=== PATIENT | female | born 1990 | race Caucasian/White ===

== ENCOUNTER 2022-06-01 19:11 | Inpatient (IN) | payer OTHER, SELFPAY ==
[2022-06-01] VITALS (10 sets, daily range): BP systolic 88–126; BP diastolic 55–84; PULSE 65–88; RESP 18; TEMP 36.3; O2SAT 100
[2022-06-01] MEDS: OXYTOCIN 30 UNITS/NS 500 ML 30 UNITS/500 ML BAG 999 UNITS IV CONT (19:36)
[2022-06-01] MEDS: METHYLERGONOVINE MALEATE 0.2 MG/ML VIAL IM (19:44)
--- NOTE | 2022-06-01 19:58 | PM.IMHP ---
H&P: HPI History of Present Illness Date/Time: 06/01/22 19:58 Chief Complaint: Labor Narrative: 32-year-old 3 para 1 whose last menstrual previous 09/02/2021, EDC is 06/09/2022, confirmed by 7 week ultrasound presents at term in active labor she has mullerian anomaly with septate levators uterus. She is admitted with this completely dilated and ruptured. She is negative for group B strep PMFSH Family History Family History Mother Breast cancer Endometriosis Social History Social History Substance use: never Spiritual care concerns: No Meds Home Medications and Allergies Home Medications Medication Instructions Recorded Confirmed Type B.coagulan,subtilis 1 bill. 2 tablet PO 05/02/22 History cell-inulin 1 gram-vit C 15 mg chew tablet (up4 Probiotics-Prebiotic Kids) magnesium 250 mg tablet 250 mg PO DAILY 05/02/22 05/02/22 History polyethylene glycol 3350 17 17 g PO DAILY 05/02/22 05/02/22 History gram/dose oral powder (Miralax) prenat.vits,lee,bbs-blyx-grquw 1 tablet PO DAILY 05/02/22 05/02/22 History simethicone 125 mg capsule (Gas 125 mg PO DAILY 05/02/22 05/02/22 History Relief (simethicone)) Allergies Allergy/AdvReac Type Severity Reaction Status Date / Time No Known Allergies Allergy Verified 05/02/22 15:40 Assessment and Plan Assessment and plan (1) Term : Code(s): Z34.90 - Encounter for supervision of normal , unspecified, unspecified trimester Status: Acute (2) Active labor: Status: Acute (3) Septate uterus: Code(s): Q51.28 - Other and unspecified doubling of uterus Status: Acute Plan spontaneous vaginal delivery is eminent.
--- NOTE | 2022-06-01 20:01 | P.PCNOB_ITS ---
OB - Delivery Note Procedure Delivery date: 06/01/22 Induction method: None Delivery monitor: External FHT Route of delivery: Episiotomy description: None Laceration Description: Perineal - 1st Degree Delivery repair: vicryl Quantitative Blood Loss (ml): 300 Anesthesia type: Local Disposition: Floor Complications: Perception as nurse delayed I arrived after deliver of the placenta [place] Baby Date of : 06/01/22 Time of : 19:21 Weeks of gestation at delivery: 38 Infant gender: Male Weight (pounds): 7 Weight (ounces): 11 presentation: vertex position: Left Occiput Anterior Placenta delivery description: Spontaneous Cord Vessel Description: 3 Vessels score one minute: 9 score five minutes: 9
[2022-06-01] MEDS: OXYTOCIN 30 UNITS/NS 500 ML 30 UNITS/500 ML BAG 125 UNITS IV CONT (20:09)
[2022-06-01 20:24] LABS: Basophils Percent Auto 0.4 % (0.2-1.2); Eosinophils Percent Auto 0.1 % (0-4.4); Hematocrit 32.4 % (37.0-47.0); Immature Granulocyte Absolute 0.05 K/mm3 (0.00-0.031); Immature Granulocyte Percent A 0.4 % (0-0.5); Immature Platelet Fraction Pct 16.3 % (0.9-11.2); Lymphocytes Absolute Auto 2.94 K/mm3 (0.9-3.2); Lymphocytes Percent Auto 26.4 % (18.3-44.2); Mean Corpuscular HGB Conc 30.9 g/dl (32-36); Mean Corpuscular Hemoglobin 25.6 pg (26-34); Mean Corpuscular Volume 82.9 fl (80-100); Mean Platelet Volume 13.9 fl (7.4-10.4); Monocytes Absolute Auto 0.8 K/mm3 (0.1-0.6); Monocytes Percent Auto 7.6 % (2.6-8.5); Neutrophils Absolute Auto 7.2 K/mm3 (1.3-6.7); Neutrophils Percent Auto 65.1 % (45.5-73.1); Platelet Count Result 175 k/mm3 (150-375); Red Blood Count 3.91 M/mm3 (4.2-5.4); Red Cell Distribution Width 14.6 % (11.5-14.5); White Blood Count 11.1 K/mm3 (4.5-10.0)
--- NOTE | 2022-06-01 21:55 | LDADM ---
This patient, Cristina Frankel, was admitted to Labor/Delivery/Recovery 104 on 06/01/22 at 19:11. Plans for labor, pain management and were discussed with patient. Patient/family oriented to hospital policies and general routines including ID bracelet, bed and alarms, visiting hours, pain management, procedures, bathroom and other care routines, personal items, smoking policy, room service/diet and guest tray routines, security routines, and visiting hours. Patient/Family are encouraged to report perceived risks to care and to ask questions if they do not understand what they are told or what they should do. See OBIX for further documentation.
[2022-06-02 04:25] VITALS: BP 126/87; PULSE 102; RESP 18; TEMP 36.3; O2SAT 100
[2022-06-02 05:23] LABS: Hematocrit 25.4 % (37.0-47.0)
[2022-06-02] MEDS: POLYSACCHARIDE IRON COMPLEX 150 MG CAPSULE PO ×2 (07:52→16:30)
[2022-06-02] MEDS: DOCUSATE SODIUM 100 MG CAPSULE PO ×2 (07:53→16:29)
[2022-06-02] MEDS: MULTIVIT/MIN/PREN/FOL AC/IRON TABLET 1 TAB PO (07:53)
[2022-06-02 08:00] VITALS: BP 110/71; PULSE 111; RESP 16; TEMP 36.9; O2SAT 100
--- NOTE | 2022-06-02 08:52 | PC.NURSE ---
Received in report from primary RN that mother stated she does not want assistance.
[2022-06-02 10:19] LABS: Rapid Plasma Reagin Non-Reactive (NonReactive)
[2022-06-02 12:04] VITALS: BP 116/72; PULSE 89; RESP 18; TEMP 36.9; O2SAT 99
[2022-06-02 16:30] VITALS: PULSE 80; RESP 16; O2SAT 100
[2022-06-02 16:34] VITALS: BP 112/73; PULSE 80; RESP 16; TEMP 36.9; O2SAT 100
--- NOTE | 2022-06-02 17:16 | PM.OBPNVD ---
OB - PN: Subj Subjective Date/time seen: 06/02/22 17:16 Narrative: Pain OK. Would like to go home. Would like circumcision for son. OB - PN: Obj Data Labs CBC & Chem 7: 06/02/22 04:19 Labs: Laboratory Results - last 24 hr 06/01/22 06/01/22 06/01/22 20:17 20:17 20:17 WBC 11.1 H RBC 3.91 L Hgb 10.0 L Hct 32.4 L MCV 82.9 MCH 25.6 L MCHC 30.9 L RDW 14.6 H Plt Count 175 MPV 13.9 H Immature Gran % (Auto) 0.4 Neut % (Auto) 65.1 Lymph % (Auto) 26.4 Bradford % (Auto) 7.6 Eos % (Auto) 0.1 Baso % (Auto) 0.4 Lymph # (Auto) 2.94 Bradford # (Auto) 0.8 H Eos # (Auto) 0.0 Baso # (Auto) 0.0 Abs Immat Gran (auto) 0.05 H Absolute Neuts (auto) 7.2 H Absolute Nucleated RBC 0.0 Nucleated RBC % 0.0 % Immature Plt Fraction 16.3 H RPR Non-reactive Blood Type A Positive Antibody Screen Negative 06/02/22 04:19 WBC RBC Hgb 8.0 L Hct 25.4 L MCV MCH MCHC RDW Plt Count MPV Immature Gran % (Auto) Neut % (Auto) Lymph % (Auto) Bradford % (Auto) Eos % (Auto) Baso % (Auto) Lymph # (Auto) Bradford # (Auto) Eos # (Auto) Baso # (Auto) Abs Immat Gran (auto) Absolute Neuts (auto) Absolute Nucleated RBC Nucleated RBC % % Immature Plt Fraction RPR Blood Type Antibody Screen OB - PN A/P Plan Comments: A: PPD#1, doing well. P: Reviewed circ. Home to f/u 6 weeks. Exam Psych: Other: AVSS ABD soft, nontender, fundus firm EXT nontender
--- NOTE | 2022-06-02 17:17 | P.DS_ITS ---
DS: Admitting Diagnosis Discharge Date 06/02/22 Admitting Diagnosis IUP at term Labor DS: Discharge Diagnosis Discharge Diagnosis (1) (normal spontaneous vaginal delivery): Code(s): O80 - Encounter for full-term uncomplicated delivery Status: Acute OB - DS: Summary OB Procedures : None OB Procedures Intrapartum: Spontaneous Vag Delivery OB Procedures: : None Time Spent with Patient Time attestation: Total time spent providing and/or coordinating discharge services: DS: Data Data Completed and Pending Labs on day of discharge: Labs from last 24 hours 06/02/22 06/01/22 06/01/22 04:19 20:17 20:17 WBC RBC Hgb 8.0 L Hct 25.4 L MCV MCH MCHC RDW Plt Count MPV Immature Gran % (Auto) Neut % (Auto) Lymph % (Auto) Stephenson % (Auto) Eos % (Auto) Baso % (Auto) Lymph # (Auto) Stephenson # (Auto) Eos # (Auto) Baso # (Auto) Abs Immat Gran (auto) Absolute Neuts (auto) Absolute Nucleated RBC Nucleated RBC % % Immature Plt Fraction RPR Non-reactive Blood Type A Positive Antibody Screen Negative 06/01/22 20:17 WBC 11.1 H RBC 3.91 L Hgb 10.0 L Hct 32.4 L MCV 82.9 MCH 25.6 L MCHC 30.9 L RDW 14.6 H Plt Count 175 MPV 13.9 H Immature Gran % (Auto) 0.4 Neut % (Auto) 65.1 Lymph % (Auto) 26.4 Stephenson % (Auto) 7.6 Eos % (Auto) 0.1 Baso % (Auto) 0.4 Lymph # (Auto) 2.94 Stephenson # (Auto) 0.8 H Eos # (Auto) 0.0 Baso # (Auto) 0.0 Abs Immat Gran (auto) 0.05 H Absolute Neuts (auto) 7.2 H Absolute Nucleated RBC 0.0 Nucleated RBC % 0.0 % Immature Plt Fraction 16.3 H RPR Blood Type Antibody Screen Discharge Plan Discharge Attending physician on discharge: Ej Givens Discharging Clinician: Ej Givens Patient Disposition: Home, Self-Care Activity: pelvic rest Diet: regular Discharge Instructions: Call or return if temperature above 100.4? F, increased abdominal pain, increased vaginal bleeding or any new problems. Stand Alone Forms: General Discharge Information Follow-up/Referrals: Ej Givens MD [Physician] - 6 Weeks Discharge Medications: New ibuprofen 600 mg tablet 600 mg PO Q6H PRN (Reason: cramps) Qty: 30 0RF ferrous sulfate 325 mg (65 mg iron) tablet 325 mg PO DAILY Qty: 30 0RF Continued magnesium 250 mg Tablet 250 mg PO DAILY #2 Tablet 1 tablet PO DAILY up4 Probiotics-Prebiotics Kids 1 billion cell- 1 gram-15 mg Tablet,Chewable 2 tablet PO simethicone [Gas Relief (simethicone)] 125 mg Capsule 125 mg PO DAILY polyethylene glycol 3350 [Miralax] 17 gram/dose Powder 17 g PO DAILY Date of admission: 06/01/22 19:11 Primary Care Provider: PHYSICIAN,GLOST TILE SORTER Admitting Provider: Ej Givens Attending physician on admission: Ej Givens Condition: Stable
[2022-06-04 11:52] VITALS: BP 111/76; PULSE 85; RESP 20; TEMP 36.9; O2SAT 99
== END 2022-06-02 20:08 | disposition home or self-care (01) | DRG 807 ==
LOC: ANHLDR 19:20 → ANHOB2 22:56
PROVIDERS: Admitting Provider Obstetrics & Gynecology; Visit Provider Obstetrics & Gynecology
DX: O62.3 Precipitate labor (principal); Z37.0 Single live birth; Z3A.38 38 weeks gestation of pregnancy; O70.0 First degree perineal laceration during delivery; Q51.818 Other congenital malformations of uterus; Q51.28 Other and unspecified doubling of uterus
CPT/HCPCS: 36415; 85014; 85018; 85025; 85055; 86592; 86850; 86900; 86901; A9270; J2210; J2590

== ENCOUNTER 2025-03-19 01:11 | Day surgery (SDC) | payer BC, SELFPAY ==
[2025-03-05 12:38] VITALS: BMI 22.8
--- NOTE | 2025-03-05 12:46 | PC.NURSE ---
Report to the Outpatient Waiting Room, entrance under the green pavilion located off [facility], at time ____1000___ on date ___03/19/25____. Planned Procedure Time: ____1200____.? Time changes happen often and if your time is changed the preop area will call you the afternoon before. - You and your visitor will be asked to self-screen and do not enter if you have any COVID symptoms. Please call surgeon if you need to reschedule. - A mask is optional within the hospital at this time. Patients may have clear liquids (water, carbonated beverages, clear teas, apple juice) until 3 hours prior to surgery with a maximum of 20 ounces. - No food from midnight until time of surgery and no smoking, or chewing tobacco (or any form of nicotine). No chewing gum, candy or mints. Take only the following medications with a SIP of water on the morning of surgery: NONE DO NOT STOP ANY OF YOUR OTHER PRESCRIPTION MEDICATIONS PRIOR TO SURGERY EXCEPT THE FOLLOWING Hold all vitamins and supplements for 3 days per anesthesiologist. Please no make-up, nail amharic, hairspray, perfume, deodorant, or body powder the day of surgery.? No jewelry (including any body piercings) or valuables the day of surgery, leave them at home.? Please take a shower or bath the night before, or the morning of, surgery with an antibacterial soap.? Wear comfortable, loose fitting clothing.? Children are encouraged to wear pajamas. - Jewelry must be removed prior to entering the operating room.? Rings and piercings that are not removed may be cut off. - The hospital will not accept responsibility for valuables.? - Please leave all valuables, including medications, at home the day of surgery. If you are going home after surgery, a licensed fire truck driver must drive you home.? - NO public transportation without another adult if you receive anesthesia. - We recommend that an adult stay with you for 24 hours following discharge. - We also recommend that you do not drive, make important decision, drink alcoholic beverages, or take any drugs that were not prescribed by your health care provider for at least 24 hours after your discharge time. Follow any additional instructions given to you from your surgeon. Telephone instructions given to Courtney and asked if any additional questions and then verbalized understanding. Patient advised to call surgeon office or pre surgery nurse liaison [phone] if any additional questions.
--- OUTSIDE RECORDS SUMMARY | 2025-03-19 01:19 | XMS_ITS | Encounter Summary ---
Author Organization [facility] Address [address] [place] [address] Care Team Providers Care Hand Edge Bander Name Role Phone Unavailable Primary Care Provider Unavailabl e Encounter Details Date Type Department Care Team (Late st Contact Info) Description 06/29/2023 Lab Requisition [facility] - DermPath Lab 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 Not on file Not on file documented as of this encounter Plan of Treatment Not on file documented as of this encounter Procedures Procedure Name Priority Date/Time Associated Diagnosis Comments DERMATOPATHOLOGY Routine 06/29/2023 3:33 AM CDT documented in this encounter Results * DERMATOPATHOLOGY (06/29/2023 3:33 AM CDT) Case Report Dermatopathology Report Case: [id number] Authorizing Provider: Lei Hernandez MD Collected: 06/29/2023 03:33 AM Ordering Location: [facility] Lab Received: 06/30/2023 07:38 AM Pathologist: Page Moreira MD Specimen: Skin, left post auricular 3 4:26 PM CDT DERMATOPATHOLOGY LABORATORY Final Diagnosis Specimen A. 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 The specimen consists of a shave biopsy measuring 10x8x3 mm. Jar 0. 3 4:26 PM CDT DERMATOPATHOLOGY LABORATORY Microscopic Description Specimen A. SKIN, left post auricular: There are nests of cytologically bland melanocytes within the dermis that mature with depth. 3 4:26 PM CDT DERMATOPATHOLOGY LABORATORY Disclaimer An external and internal positive and negative controls are appropriate for the histochemical, immunohistochemical and immunofluorescence stain(s) in this case (if any), except where stated explicitly. The performance characteristics of the stain(s) cited in this report were developed and its performance characteristic determined by the Dermatopathology Laboratory at [facility], directed by Dr. Doug Coles. These tests need not be, and therefore are not, approved by the [place] Food and Drug Administration. The tests are used for clinical purposes. Billing Codes Specimen Charges Stain Charges 86167 1 3 4:26 PM CDT DERMATOPATHOLOGY LABORATORY Embedded Images 3 4:26 PM CDT DERMATOPATHOLOGY LABORATORY Pathology/Cytolo gy TISSUE SPECIMEN FROM SKIN / Unknown 06/29/2023 3:33 AM CDT 06/30/2023 7:38 AM CDT us Lei Hernandez MD LAB - PATHOLOGY/CYTOLOGY ORDER NAYELI Final Result DERMATOPATHOLOGY LABORATORY [facility] - Department of Dermatology [address], [address] [phone] documented in this encounter Visit Diagnoses Not on filedocumented in this encounter
--- OUTSIDE RECORDS SUMMARY | 2025-03-19 01:19 | XMS_ITS | Clinical Summary ---
Author Organization [facility] Address [address] [place] [address] Phone Care Team Providers Care Regulatory Compliance Specialist Name Role Phone Mony Graff APRN, PERSONNEL PLACEMENT SPECIALIST Primary Care Provi rubin Medications ESTARYLLA 0.25-35 MG-MCG Tablet TK 1 T PO D 11 07/24/2019 Active Social History Tobacco Use Types Packs/Day Years Used Date Smoking Tobacco: Never Smokeless Tobacco: Never Comments Unknown Sex and Gender Information Value Date Recorded Sex Assigned at Not on file Legal Sex Female 4:16 PM PIPELINE DISPATCH OPERATOR Gender Identity Not on file Sexual Orientation Not on file Last Filed Vital Signs Vital Sign Reading Time Taken Comments Blood Pressure 118/82 07/30/2019 2:11 PM CDT Pulse 86 07/30/2019 2:11 PM CDT Temperature - - Respiratory Rate - - Oxygen Saturation 98% 07/30/2019 2:11 PM CDT Inhaled Oxygen Concentration - - Weight 58.4 kg (128 lb 12.8 oz) 07/30/2019 2:11 PM CDT Height - - Body Mass Index - - Plan of Treatment Health Maintenance Due Date Last Done Comments Hepatitis C Virus (HCV) Screening 1991 TdaP Immunization 1991 Hepatitis B Immunization (1 of 3 - 19+ 3-dose series) 2010 Influenza Immunization (#1) 2024 08/31/2018 SARS-COV-2 Immunization ( - season) 2024 Respiratory Syncytial Virus (RSV) Immunization (Adult) (1 - 1-dose 75+ series) 2066 Meningococcal Immunization (ACWY) Aged Out No longer eligible based on patient's age to complete this topic Pneumococcal Immunization Combined Aged Out No longer eligible based on patient's age to complete this topic Rotavirus Immunization Aged Out No lo nger eligible based on patient's age to complete this topic Insurance Care Teams Regulatory Compliance Specialist Relationship Specialty Start Date End Date Mony Graff, RECRUITER MANAGER, PERSONNEL PLACEMENT SPECIALIST PCP - General Certified Nurse Practitioner 06/25/19
--- OUTSIDE RECORDS SUMMARY | 2025-03-19 01:19 | XMS_ITS | Encounter Summary ---
Author Organization [facility] Address [address] [place] [address] Care Team Providers Care Business Continuity Manager Name Role Phone Unavailable Primary Care Provider Unavailabl e Reason for Visit * Reason Onset Date Comments Scheduling 10/16/2018 Encounter Details Date Type Department Care Team (Late st Contact Info) Description 10/16/2018 Telephone [facility] [place] [address] [place] [phone] Isamar Silva, RN Scheduling Social History Tobacco Use Types Packs/Day Years Used Date Smoking Tobacco: Never Assessed Comments Yes Sex and Gender Information Value Date Recorded Sex Assigned at Not on file Legal Sex Female 1:38 PM CDT Gender Identity Not on file Sexual Orientation Not on file 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 When discussing plan for US and consult with Dr. Gan, patient shared that she does not want to have another US to look at the club feet again. She would liketo consult with Dr. Gan but questioned if a previous scan could be used instead of getting another one at [facility]. Stated I would talk with Dr. Sanchze and call her back. RDOUS WASTE TECHNICIAN documented in this encounter Plan of Treatment Not on file documented as of this encounter Visit Diagnoses Not on filedocumented in this encounter
--- OUTSIDE RECORDS SUMMARY | 2025-03-19 01:19 | XMS_ITS | Clinical Summary ---
Author Organization [email or web address] Address [address] [place] [address] Care Team Providers Care Railroader Name Role Phone Unavailable Primary Care Provider Unavailabl e Source Comments [email or web address],non-owned Affiliates and Associated Physician Practices is amultiple site organization consisting of ambulatory clinics and hospital sitesin [place], [place], [place] and [place]. This disclosure is being madepursuant to the Care Everywhere program and may not contain all information available regarding this patient. Last updated 18.Gamador Allergies No known active allergies Medications * Be aware that medications may not be up to date on this document. Alwaysverify current medications with the patient. 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 [facility] PATIENT--PLEASE CALL [phone] IF TRIAGED OR ADMITTED Care Provider: Referred by Dr. Sanchez (at [facility] OB Dr. Miller [facility] Care [place] consultants involved: [facility] Nurse- Cyndi Diagnosis: Bilateral Club feet follow up: Hvac Tech: Planned surveillance: Patient called on 12.04.18 to cancel her appointment scheduled for 12.12.18. NEVER SEEN AT [facility] Delivery location, mode, and GA: Autopsy indicated: Genetics note: Patent Paralegal Concerns: Care plan based on evaluation and is subject to change based on assessment. See Images or Cardiac under Chart Review for US/ ECHO/ MRI reports. 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 Not on file Not on file Last Filed Vital Signs Vital Sign Reading Time Taken Comments Blood Pressure 96/60 10/02/2018 3:55 PM SUPERVISOR PRODUCTION MANAGING Pulse 60 10/02/2018 3:59 PM SUPERVISOR PRODUCTION MANAGING Temperature - - Respiratory Rate - - Oxygen Saturation - - Inhaled Oxygen Concentration - - Weight 64 kg (141 lb) 10/02/2018 3:57 PM SUPERVISOR PRODUCTION MANAGING Height 160 cm (5' 3 ) 10/02/2018 3:59 PM SUPERVISOR PRODUCTION MANAGING Body Mass Index 24.98 10/02/2018 3:57 PM SUPERVISOR PRODUCTION MANAGING Plan of Treatment Health Maintenance Due Date Last Done Comments HIV SCREENING 2006 HEPATITIS C SCREENING 03/09/2009 DTAP/TDAP/TD VACCINES (1 - Tdap) 2010 HEPATITIS B VACCINE (1 of 3 - 19+ 3-dose series) 2010 PAP SMEAR 06/01/2021 06/01/2018 (Done Outside Per Report) COVID-19 VACCINE (1 - 2023-2 5 season) 2024 DEPRESSION SCREENING 11/20/2024 INFLUENZA VACCINE (Season Ended) 2025 08/31/2018 ZOSTER VACCINE (1 of 2) 2041 HIB VACCINE Aged Out No longer eligi ble based on patient's age to complete this topic HPV VACCINE Aged Out No longer eligi ble based on patient's age to complete this topic MENINGOCOCCAL (Group B) VACCINE SHARED DECISION-MAKING Aged Out No longer eligible based on patient's age to complete this topic MENINGOCOCCAL GROUPS A/C/Y/W VACCINE Aged Out No longer eligible based on patient's age to complete this topic PNEUMOCOCCAL VACCINE Aged Out No long er eligible based on patient's age to complete this topic Insurance [facility]
--- OUTSIDE RECORDS SUMMARY | 2025-03-19 01:19 | XMS_ITS | Clinical Summary ---
Author Organization [facility] [address] [facility] Address [address] [place] [address] Care Team Providers Care Diesel Engine Mechanic Apprentice Name Role Phone Dario Gordon MD Primary Care Provider [phone] [phone] Allergies No known active allergies Medications citalopram (CeleXA) 20 mg tabletIndication s:Anxiety Take 1 tablet (20 mg total) by mouth daily 90 tablet 04/03/2020 Active Active Problems Problem Noted Date Diagnosed Date Thirst 04/23/2020 Anxiety 01/01/2020 Anemia 01/01/2020 Club foot, , affecting care of mother, ante 12/18/2018 Anxiety and depression 01/04/2018 Immunizations Immunization Administration Dates Next Due Influenza, Quadrivalent, Spl it, Preservative Free, Intramuscular 08/31/2018 Influenza, Unspecified 09/20/2019,2016(Deferred: Patient Refused),11/21/2016(Deferred: Patient Refused) MMR 12/18/2018 Tdap 12/18/2018 Surgical History Surgery Date Site/Laterality Comments TYMPANOSTOMY TUBE PLACEMENT 2 years old Social History Tobacco Use Types Packs/Day Years Used Date Smoking Tobacco: Never Smokeless Tobacco: Never PHQ-2 Answer Date Recorded PHQ-2 Total Score (If total score is 3 or more points, staff should administer the PHQ-9) 0 04/23/2020 Personal Safety Answer Date Recorded Getting School Help Needed Not on file 02/03 Comments No Sex and Gender Information Value Date Recorded Sex Assigned at Not on file Legal Sex Female 10:34 AM ARMATURE REPAIRER Gender Identity Not on file Sexual Orientation Not on file Obstetrics History Para Term AB IAB SAB Ectopic Multiple Livin g Live Births 1 1 1 0 1 1 Date Outcome GA Total Labor Labor/2nd/3rd Weight Sex Type Anes PTL Christy A1 A5 Name Clin 019 35w 4d 0h 49m 0h 37m/0h 12m 2.62 kg (5 lb 12.4 oz) F Vag-S pont None Y Livin g 6 [address] [place] ,[address] Sherley Kelly MD Complications:Premature Rupt ure of Membranes Delivery Location:This Facil ity ([facility]) Last Filed Vital Signs Vital Sign Reading Time Taken Comments Blood Pressure 100/60 01/01/2020 8:19 AM ARMATURE REPAIRER Pulse 75 01/01/2020 8:19 AM ARMATURE REPAIRER Temperature 36.8 C (98.3 F) 01/01/2020 8:19 AM ARMATURE REPAIRER Respiratory Rate 16 01/01/2020 8:19 AM ARMATURE REPAIRER Oxygen Saturation 99% 01/01/2020 8:19 AM ARMATURE REPAIRER Inhaled Oxygen Concentration - - Weight 56.7 kg (125 lb) 04/23/2020 9:29 AM CDT p er pt Height 160 cm (5' 2.99 ) 04/23/2020 9:29 AM CDT Body Mass Index 22.15 04/23/2020 9:29 AM CDT Plan of Treatment Not on file Insurance BL CHOICE PRF PPO [place] Advance Directives For more information, please contact: [phone] * Full Code (Latest Code Status on File) Date Activated Date Inactivated Comments 12/16/2018 3:44 PM 12/19/2018 1:37 AM * Full Code Date Activated Date Inactivated Comments 12/16/2018 10:52 AM 12/16/2018 3:44 PM Full CPR in case of cardiopulmonary arrest Care Teams Diesel Engine Mechanic Apprentice Relationship Specialty Start Date End Date Dario Gordon MD [address] [place] [address] PCP - General Family Medicine 05/14/19
--- OUTSIDE RECORDS SUMMARY | 2025-03-19 01:19 | XMS_ITS | Referral Summary ---
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 Gender Identity Not on file Sexual Orientation Not on file Last Filed Vital Signs Vital Sign Reading Time Taken Comments Blood Pressure 100/60 01/01/2020 8:19 AM RELIEF PILOT Pulse 75 01/01/2020 8:19 AM RELIEF PILOT Temperature 36.8 C (98.3 F) 01/01/2020 8:19 AM RELIEF PILOT Respiratory Rate 16 01/01/2020 8:19 AM RELIEF PILOT Oxygen Saturation 99% 01/01/2020 8:19 AM RELIEF PILOT Inhaled Oxygen Concentration - - Weight 56.7 kg (125 lb) 04/23/2020 9:29 AM CDT p er pt Height 160 cm (5' 2.99 ) 04/23/2020 9:29 AM CDT Body Mass Index 22.15 04/23/2020 9:29 AM CDT Plan of Treatment Not on file Insurance BL CHOICE PRF PPO [place] Advance Directives For more information, please contact: [phone] * Full Code (Latest Code Status on File) Date Activated Date Inactivated Comments 12/16/2018 3:44 PM 12/19/2018 1:37 AM * Full Code Date Activated Date Inactivated Comments 12/16/2018 10:52 AM 12/16/2018 3:44 PM Full CPR in case of cardiopulmonary arrest Care Teams Container Maker Relationship Specialty Start Date End Date Harms, Dario Leighton, MD [address] [place] [address] PCP - General Family Medicine 05/14/19
--- OUTSIDE RECORDS SUMMARY | 2025-03-19 01:19 | XMS_ITS | Clinical Summary ---
Author Organization [facility] Address [id number] [place] [phone] Phone Care Team Providers Care Surveyor Geodetic Name Role Phone Unavailable Primary Care Provider Unavailabl e Allergies No known active allergies Medications multivitamin tablet Take 1 Tablet by mouth daily. Active ascorbic acid (vitamin C) 250 mg tablet Take 250 mg by mouth daily. Active L.acid/L.casei/B .bif/B.toño/FOS (PROBIOTIC BLEND ORAL) Take 1 Tablet by mouth daily. Active Social History Tobacco Use Types Packs/Day Years Used Date Smoking Tobacco: Never Alcohol Use Standard Drinks/Week Comments Yes 0 (1 standard drink = 0.6 oz pur e alcohol) rare Feeling Safe Answer Date Recorded Are you in a relationship wi th someone who hurts you emotionally and/or physically? No 12/22/2023 Food Insecurity Answer Date Recorded Social/Environmental Concerns No concerns Transportation Needs Answer Date Record ed Social/Environmental Concerns No concerns Housing Stability Answer Date Recorded Social/Environmental Concerns No concerns Utility Needs Answer Date Recorded Social/Environmental Concerns No concerns Comments No Sex and Gender Information Value Date Recorded Sex Assigned at Not on file Legal Sex Female 2:11 PM CDT Gender Identity Not on file Sexual Orientation Not on file Last Filed Vital Signs Vital Sign Reading Time Taken Comments Blood Pressure 104/59 12/22/2023 4:20 PM PROJECT ADMINISTRATIVE ASSISTANT Pulse 96 12/22/2023 4:20 PM PROJECT ADMINISTRATIVE ASSISTANT Temperature 36.8 C (98.2 F) 12/22/2023 3:17 PM PROJECT ADMINISTRATIVE ASSISTANT Respiratory Rate 12 12/22/2023 4:20 PM PROJECT ADMINISTRATIVE ASSISTANT Oxygen Saturation 98% 12/22/2023 4:20 PM PROJECT ADMINISTRATIVE ASSISTANT Inhaled Oxygen Concentration - - Weight 61.2 kg (135 lb) 12/22/2023 11:05 AM PROJECT ADMINISTRATIVE ASSISTANT Height 160 cm (5' 3 ) 12/22/2023 11:05 AM PROJECT ADMINISTRATIVE ASSISTANT Body Mass Index 23.91 12/22/2023 11:05 AM PROJECT ADMINISTRATIVE ASSISTANT Plan of Treatment Health Maintenance Due Date Last Done Comments HEPATITIS B VACCINES (1 of 3 - 19+ 3-dose series) 2010 HPV/Cotest (21-29) 2012 CERVICAL CANCER SCREENING 2021 HPV/Cotest (30-65) 2021 PAP SMEAR 2021 INFLUENZA VACCINE (#1) 2024 08/31/2018 DTAP/TDAP/TD VACCINES (2 - T d or Tdap) 12/18/2028 12/18/2018 HPV VACCINES Aged Out No longer eligi ble based on patient's age to complete this topic Medical Devices Implanted Type Area Wound Treatment Rn Device Identifier Shelf Expiration Date Model / Serial / Lot Electronic Equipment Trades Worker Clip Surgiclip Julio 13in [id number] - [id number] Implanted:Qty : 2 on 04/10/2023 by Vel De Leon MD at [facility] Breast MEDTRONIC - COVIDIEN [id number] / / Imp Breast Inspira Scm 405ml Scm-405 - [id number] Implanted:Qty : 1 on 04/10/2023 by eVl De Leon MD at [facility] Right: Breast [employer]- MEDICAL 11/13/2026 SCM-405 / [id number] / [id number] Description:SVA ADDED - NO C HARGE - SURGEON BROUGHT IMPLANTS Imp Breast Inspira Scm 405ml Scm-405 - [id number] Implanted:Qty : 1 on 04/10/2023 by Vel De Leon MD at [facility] Left: Breast [employer] MEDICAL 11/20/2027 SCM-405 / [id number] / [id number] Description:SVA ENTERED - NO CHARGE - SURGEON BROUGHT IMPLANTS Imp Breast Inspira Scm 405ml Scm-405 - [id number] Implanted:Qty : 1 on 11/07/2023 by Vel De Leon MD at [facility] Left: Breast [employer] 12/04/2027 [facility]-405 / [id number] / [id number] Description:CHARGE REMOVED I MPLANT BROUGHT IN BY DOCTOR'S OFFICE-RDJ Imp Breast Inspira Scm 405ml [facility]-405 - [id number] Implanted:Qty : 1 on 12/22/2023 by Vel De Leon MD at [facility] Right: Breast [employer] 11/20/2027 [facility]-405 / [id number] / [id number] Description:NO CHARGE - SURG ALEIDA BROUGHT IMPLANT Mesh Galaflex Bioresorb Scaffold 6x8in [id number] - [id number] Implanted:Qty : 1 on 11/07/2023 by Vel De Leon MD at [facility] Mesh N/A: Breast [employer] 12/20/2024 [id number] / / [id number] Description:NO CHARGE IMPLAN T SUPPLIED BY [facility] Explanted Type Area Wound Treatment Rn Device Identifier Shelf Expiration Date Model / Serial / Lot Imp Breast Inspira Scm 405ml [facility]405 - [id number] Implanted:Qty: 1 on 11/07/2023 by Vel De Leon MD at [facility] Explanted:Qty: 1 on 12/22/2023 by Vel De Leon MD at [facility] Right: Breast [employer] 01/07/2027 [facility]-405 / [id number] / [id number] Description:CHARGE REMOVED I MPLANT BROUGHT IN BY DOCTOR'S OFFICE-RDJ Insurance RX [employer] Commercial Advance Directives For more information, please contact: [phone] * Full Code (Latest Code Status on File) Date Activated Date Inactivated Comments 12/22/2023 10:48 AM 12/22/2023 6:34 PM * Full Code Date Activated Date Inactivated Comments 04/10/2023 4:37 PM 04/11/2023 12:52 PM
[2025-03-19 10:03] VITALS: BP 103/67; PULSE 63; RESP 16; TEMP 36.7; O2SAT 100
[2025-03-19 10:15] LABS: BEDSIDEPREGUCG Negative (Negative)
[2025-03-19] MEDS: LACTATED RINGERS 1,000 ML 30 ML IV CONT (10:30)
[2025-03-19] MEDS: ACETAMINOPHEN 500 MG TABLET 1000 MG PO (10:35)
--- NOTE | 2025-03-19 10:49 | PM.IMHP ---
H&P: HPI History of Present Illness Date/Time: 03/19/25 10:49 Chief Complaint: Heavy periods. Narrative: 35 y/o with heavy, monthly menses lasting 7-10 days each. Her has had a vasectomy and she is finished with childbearing. She desires surgical management. Review of Systems Review of Systems: All systems reviewed & are unremarkable except as noted in HPI and below PMFSH Surgical History Surgical History History of abdominoplasty History of breast augmentation Family History Family History Mother Breast cancer Endometriosis Social History Social History Smoking status: Never smoker Second hand tobacco smoke exposure: No Alcohol use details: per pt., barely drinks Substance use: never Living arrangements: with family Spiritual care concerns: No Meds Home Medications and Allergies Home Medications ?Medication ?Instructions ?Recorded ?Confirmed ?Type elderberry fruit 200 mg capsule 200 mg PO DAILY 03/05/25 03/19/25 History multivitamin (Daily Multi-Vitamin 1 tablet PO DAILY 03/05/25 03/19/25 History tablet) Allergies Allergy/AdvReac Type Severity Reaction Status Date / Time No Known Allergies Allergy Verified 03/19/25 10:09 Vital Signs Vital Signs - 24 hr 03/19/25 10:03 Temperature 36.7 C Pulse Rate 63 Respiratory Rate 16 Blood Pressure 103/67 Pulse Oximetry 100 Oxygen Delivery Room Air Exam Const: Orientation/consciousness: patient oriented x3 Other: Well-developed, well-nourished female in no acute distress. Neck: Thyroid: thyroid normal Lymphatic: no lymphadenopathy noted (in neck, axilla or inguinal nodes) Resp: Effort & Inspection: normal respiratory effort Auscultation: clear to auscultation bilaterally Cardio: Rate: regular rate Rhythm: regular rhythm Heart sounds: S1 normal heart sound present and S2 normal heart sound present GI: Other: ABD: Soft, nontender, nondistended. No guarding or rebound tenderness. No hepatosplenomegaly. : General: Yes no CVA tenderness Other: External genitalia: normal female hair distribution, without lesion. Urethral meatus: no lesion, non prolapsed. Bladder: no mass, nontender Vagina: well-estrogenized, without lesion or discharge. No cystocele or rectocele. Cervix: no lesion or discharge. Uterus: small, anteverted, freely mobile, nontender Adnexa: no mass or tenderness. Anus/perineum: no lesions, nontender Back/Spine/Pelvis: Back: no CVA tenderness Skin: General skin exam: normal color and no rashes or lesions noted Neuro: General: patient oriented x3 Extrem: Other: Extremities: nontender with no edema Psych: Mental Status: mental status grossly normal Affect: normal affect Assessment and Plan Assessment and plan (1) Menometrorrhagia: Code(s): N92.1 - Excessive and frequent menstruation with irregular cycle Status: Acute Assessment and Plan: A: Menometrorrhagia. P: We have reviewed medical as well as surgical management options, and she prefers the latter. Specifically, I have offered her a hysteroscopy with dilation and sharp curettage and endometrial ablation. She understands risks of surgery to include risks of anesthesia, risks of pain, infection, bleeding, blood products, thromboembolic phenomena and damage to adjacent structures such as bowel, bladder, ureters, blood vessels and nerves. She understands that endometrial ablation is insufficient for contraception. Finally, she understands that Muellerian anomalies may affect the efficacy of endometrial ablation. However, she really would like to pursue conservative treatment for her heavy menses, and would like to try ablation. She understands all these risks and elects to proceed with surgery.
--- NOTE | 2025-03-19 12:00 | P.PNAN_ITS ---
Anes - Initial Pre Proc Eval Procedure: Operation Date: 03/19/25 12:00 Proposed Procedures p Hysteroscopy Dilation and Curettage with Mary Endometrial Ablation - Ej Givens MD Date/Time: 03/19/25 12:00 Surgeon: Ej Givens MD Pre Op Diagnosis: Heavy Bleeding Patient Data Age: 35 Gender: F Height: 1.6 m Weight: 58.9 kg Last Vital Signs Temp 98.0 F 03/19/25 10:03 Pulse 63 03/19/25 10:03 Resp 16 03/19/25 10:03 BP 103/67 03/19/25 10:03 Pulse Ox 100 03/19/25 10:03 O2 Del Method Room Air 03/19/25 10:03 Allergies Allergy/AdvReac Type Severity Reaction Status Date / Time No Known Allergies Allergy Verified 03/19/25 10:09 Home Medications ?Medication ?Instructions ?Recorded ?Confirmed ?Type elderberry fruit 200 mg capsule 200 mg PO DAILY 03/05/25 03/19/25 History multivitamin (Daily Multi-Vitamin 1 tablet PO DAILY 03/05/25 03/19/25 History tablet) Laboratory Tests 03/19/25 10:13 POC Urine HCG, Qual Negative (Negative) Patient hx anesthesia problems: none Family hx anesthesia problems: none Results Review: All pre-operative results and documents have been reviewed as part of the pre- operative evaluation. [facility] Surgical History Surgical History History of breast augmentation Family History Family History Mother Breast cancer Endometriosis Social History Social History Smoking status: Never smoker Second hand tobacco smoke exposure: No Alcohol use details: per pt., barely drinks Substance use: never Living arrangements: with family Spiritual care concerns: No Anes - Eval Final PreProcedure Day of Procedure 03/19/25 12:00 Patient weight: normal Lungs: normal air movement Airway: Mallampati scale class II and special considerations (R upper tooth is bonded by hx. ) Neurological: alert and oriented Last oral intake: >/= 8 hours ASA classification: I Emergent: no Anesthetic plan: proceed Anesthesia type and monitoring: general GIVS and standard monitoring Results Review: All pre-operative results and documents have been reviewed as part of the pre- operative evaluation. Healthy, active w workouts, no cp or sob. Informed Consent: The patient's anesthetic plan and its attendant risks and benefits were discussed with the patient/family/POA. Questions were solicited and answers prov ided to the satisfaction of the patient/family/POA.
--- NOTE | 2025-03-19 12:15 | WPDHPUPDATE1 ---
History and Physical Update Update Date/Time: 03/19/25 12:15 History and Physical has been reviewed, including an updated exam of the patient. There are NO changes in the patient's condition. Risks, benefits, and alternatives have been discussed and questions answered. Patient agrees to proceed with procedure.
[2025-03-19] MEDS: LIDOCAINE 1% LOCAL INJ 10 ML VIAL 20 ML INFILTRATE (12:26)
--- NOTE | 2025-03-19 12:44 | SUR.OPER ---
Fluid Deficit 60
[2025-03-19 12:48] VITALS: BP 101/66; PULSE 60; RESP 12; O2SAT 97
--- NOTE | 2025-03-19 12:53 | W.PM.PROC2 ---
Procedure Note - Detailed Date of Procedure 03/19/25 Pre-op Diagnosis Menorrhagia Post-op Diagnosis Same Procedure Performed Hysteroscopy Dilation and sharp curettage Endometrial ablation Surgeon Ej Givens MD Anesthesia MAC and Local (1% lidocaine) Findings Shallow uterine septum. Both tubal ostia seen. Otherwise, the endometrial cavity is unremarkable. After the ablation, good coverage of the endometrial cavity was seen, including in the bilateral cornua. Description of Procedure The patient was taken to the operating room where she was prepared and draped in the usual sterile fashion in the dorsal lithotomy position. The bladder was drained with a red rubber catheter. A sterile speculum was placed into the vagina. The anterior lip of the cervix was grasped with single-tooth tenaculum. Ten mL of 1% lidocaine was administered in a paracervical block. The cervix was then gently dilated using Hegar dilators until a 7 mm dilator could be passed. Hysteroscopy was performed using sterile saline as a distention medium. Findings are as noted above. Sharp curettage was then performed, and endometrial curettings were collected on a Telfa pad and passed off to be sent to pathology. Finally, the the Mary device was advanced and endometrial ablation commenced without difficulty. The device was withdrawn and a second look was taken using the hysteroscope. Excellent coverage of the endometrial cavity was noted, as above. The tenaculum was removed. Hemostasis was excellent. Sponge, lap, needle and instrument counts were correct. The patient was awakened and taken to the recovery room in stable condition. I was present and scrubbed through the entire procedure. Implants None Estimated Blood Loss 5 Drains No Packing No Pathology Yes (Endometrial curettings) Complications None Condition Stable Disposition PACU
[2025-03-19 13:18] VITALS: BP 119/74; PULSE 63; RESP 14
[2025-03-19 13:32] VITALS: BP 116/72; PULSE 62; RESP 14
== END 2025-03-19 13:34 | disposition home or self-care (01) ==
PROVIDERS: Visit Provider Obstetrics & Gynecology
PROC: 0U5B8ZZ Destruction of Endometrium, Via Natural or Artificial Opening Endoscopic (ICD-10-PCS; CPT 58563; principal; 2025-03-19 12:00)
DX: N92.1 Excessive and frequent menstruation with irregular cycle (principal); G89.18 Other acute postprocedural pain; Z98.890 Other specified postprocedural states; Z80.3 Family history of malignant neoplasm of breast
CPT/HCPCS: 58563; 88305; A9270; J1100; J2003; J2250; J2405; J2704; J3010; J7120

== ENCOUNTER → 2025-06-16 16:18 | Outpatient (CLI) | payer BC, SELFPAY ==
--- NOTE | ~2025-06-16 | XR_ITS ---
XR abdomen/kub 1V 06/16/2025 16:29 INDICATION: Abdominal distention TECHNIQUE: KUB COMPARISON: None FINDINGS: Bowel gas pattern is normal. Large amount retained fecal material throughout the colon. The re is no evidence of free air, mass, organomegaly, ascites or obstruction. No abnormal calculi are s een. The bones appear intact. IMPRESSION: 1: No acute abdominal abnormality identified. Reviewed, dictated and finalized at location B.
== END ==
LOC: EXPCRAD 16:20
PROVIDERS: PCP Family Medicine; Visit Provider Family Medicine
DX: R14.0 Abdominal distension (gaseous) (principal)
CPT/HCPCS: 74018

== ENCOUNTER 2025-08-18 08:40 | Outpatient (CLI) | payer BC, SELFPAY ==
--- OUTSIDE RECORDS SUMMARY | 2025-08-18 08:52 | XMS_ITS | Clinical Summary ---
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 Gender Identity Not on file Sexual [...] Comments Blood Pressure 100/60 01/01/2020 8:19 AM RAIL OPERATOR Pulse 75 01/01/2020 8:19 AM RAIL OPERATOR Temperature 36.8 C (98.3 F) 01/01/2020 8:19 AM RAIL OPERATOR Respiratory Rate 16 01/01/2020 8:19 AM RAIL OPERATOR Oxygen Saturation 99% 01/01/2020 8:19 AM RAIL OPERATOR Inhaled Oxygen Concentration - - Weight 56.7 kg (125 lb) 04/23/2020 9:29 AM CDT p er pt Height 160 cm (5' 2.99) 04/23/2020 9:29 AM CDT Body Mass Index 22.15 04/23/2020 9:29 AM CDT Plan of Treatment Not on file Insurance BL CHOICE PRF PPO [place] Advance Directives For more information, please contact: [phone] * Full Code (Latest Code Status on File) Date Activated Date Inactivated Comments 12/16/2018 3:44 PM 12/19/2018 1:37 AM * Full Code Date Activated Date Inactivated Comments 12/16/2018 10:52 AM 12/16/2018 3:44 PM Full CPR in case of cardiopulmonary arrest Care Teams Personal Driver Relationship Specialty Start Date End Date Dario Gordon MD [address] [place] [address] PCP - General Family Medicine 05/14/19
--- OUTSIDE RECORDS SUMMARY | 2025-08-18 08:53 | XMS_ITS | Encounter Summary ---
Author Organization [facility] Address [address] [place] [address] Care Team Providers Care Pharmaceutical Laboratory Technician Name Role Phone Unavailable Primary Care Provider Unavailabl e Encounter Details Date Type Department Care Team (Late st Contact Info) Description 06/29/2023 Lab Requisition [facility] - DermPath Lab [address], [place] [id number] Lei Hernandez MD [address] [place] [address] Social History Tobacco Use Types Packs/Day Years Used Date Smoking Tobacco: Never Assessed Comments No Sex and Gender Information Value Date Recorded Sex Assigned at Not on file Legal Sex Female 1:38 PM CDT Gender Identity Not on file Sexual Orientation Not on file 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 Not on file Not on file documented as of this encounter Plan of Treatment Not on file documented as of this encounter Procedures Procedure Name Priority Date/Time Associated Diagnosis Comments DERMATOPATHOLOGY Routine 06/29/2023 3:33 AM CDT documented in this encounter Results * DERMATOPATHOLOGY (06/29/2023 3:33 AM CDT) Case Report Dermatopathology Report Case: [id number] Authorizing Provider: Lei Hernandez MD Collected: 06/29/2023 03:33 AM Ordering Location: [facility] DermPath Lab Received: 06/30/2023 07:38 AM Pathologist: Page Moreira MD Specimen: Skin, left post auricular 3 4:26 PM CDT DERMATOPATHOLOGY LABORATORY Final Diagnosis Specimen A. 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 Doug Coles. These tests need not be, and therefore are not, approved by the [place] Food and Drug Administration. The tests are used for clinical purposes. Billing Codes Specimen Charges Stain Charges 56817 1 3 4:26 PM CDT DERMATOPATHOLOGY LABORATORY Embedded Images 3 4:26 PM CDT DERMATOPATHOLOGY LABORATORY Pathology/Cytolo gy TISSUE SPECIMEN FROM SKIN / Unknown 06/29/2023 3:33 AM CDT 06/30/2023 7:38 AM CDT us Lei Hernandez MD LAB - PATHOLOGY/CYTOLOGY ORDER NAYELI Final Result DERMATOPATHOLOGY LABORATORY [facility] - Department of Dermatology [address], [address] [phone] documented in this encounter Visit Diagnoses Not on filedocumented in this encounter
--- OUTSIDE RECORDS SUMMARY | 2025-08-18 08:53 | XMS_ITS | Clinical Summary ---
Author Organization [facility] Address [address] [place] [address] Care Team Providers Care Concrete Rubber Name Role Phone Unavailable Primary Care Provider Unavailabl e Source Comments [facility],non-owned Affiliates and Associated Physician Practices is amultiple site organization consisting of ambulatory clinics and hospital sitesin [place], [place], [place] and [place]. This disclosure is being madepursuant to the Care Everywhere program and may not contain all information available regarding this patient. Last updated 18.[employer] [facility] Allergies No known active allergies Medications * [...] from the original note were not included. [facility] PATIENT--PLEASE CALL [phone] IF TRIAGED OR ADMITTED Care Provider: Referred by Dr. Sanchez (at [facility] OB [facility] Care Morgan consultants involved: [facility] Nurse- Cyndi Diagnosis: Bilateral Club feet follow up: Structural Biologist: Planned surveillance: Patient called on 12.04.18 to cancel her appointment scheduled for 12.12.18. 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 Not on file Not on file Last Filed Vital Signs Vital Sign Reading Time Taken Comments Blood Pressure 96/60 10/02/2018 3:55 PM GETTER WELDER Pulse 60 10/02/2018 3:59 PM GETTER WELDER Temperature - - Respiratory Rate - - Oxygen Saturation - - Inhaled Oxygen Concentration - - Weight 64 kg (141 lb) 10/02/2018 3:57 PM GETTER WELDER Height 160 cm (5' 3) 10/02/2018 3:59 PM GETTER WELDER Body Mass Index 24.98 10/02/2018 3:57 PM GETTER WELDER Plan of Treatment Health Maintenance Due Date Last Done Comments HIV SCREENING 2006 HEPATITIS C SCREENING 03/09/2009 DTAP/TDAP/TD VACCINES (1 - Tdap) 2010 HEPATITIS B VACCINE (1 of 3 - 19+ 3-dose series) 2010 HPV VACCINE (1 - 3-dose SCDM series) 2018 PAP SMEAR 06/01/2021 06/01/2018 (Done Outside Per Report) DEPRESSION SCREENING 11/20/2024 COVID-19 VACCINE (2023-2 5 season) 2025 INFLUENZA VACCINE (#1) 2025 08/31/2018 ZOSTER VACCINE (1 of 2) [...] patient's age to complete this topic Insurance [facility] SELF PAY NO INSURANCE Member Subscriber Plan / Payer (Ef fective for All Dates) Name:Cristina Adkins Member ID:Not on file Relation to Subscriber:Not on file Name:CRISTINA ADKINS Subscriber ID:Not on file (Home) Address: [facility] [place] [address] Payer ID:Not on file Group ID:Not on file Type:Self Pay Address: [place], [place]
--- OUTSIDE RECORDS SUMMARY | 2025-08-18 08:53 | XMS_ITS | Clinical Summary ---
Author Organization [facility] Address [address] [place] [address] Phone Care Team Providers Care Sales Order Processor Name Role Phone Unavailable Primary Care Provider [...] Comments Blood Pressure 104/59 12/22/2023 4:20 PM ALLERGY PHYSICIAN Pulse 96 12/22/2023 4:20 PM ALLERGY PHYSICIAN Temperature 36.8 C (98.2 F) 12/22/2023 3:17 PM ALLERGY PHYSICIAN Respiratory Rate 12 12/22/2023 4:20 PM ALLERGY PHYSICIAN Oxygen Saturation 98% 12/22/2023 4:20 PM ALLERGY PHYSICIAN Inhaled Oxygen Concentration - - Weight 61.2 kg (135 lb) 12/22/2023 11:05 AM ALLERGY PHYSICIAN Height 160 cm (5' 3) 12/22/2023 11:05 AM ALLERGY PHYSICIAN Body Mass Index 23.91 12/22/2023 11:05 AM ALLERGY PHYSICIAN Plan of Treatment Health Maintenance Due Date Last Done Comments HEPATITIS B VACCINES (1 of 3 - 19+ 3-dose series) 02/19 HPV/Cotest (21-29) 2012 HPV VACCINES (1 - 3-dose SCDM series) 2018 CERVICAL CANCER SCREENING 2021 HPV/Cotest (30-65) 2021 PAP SMEAR 2021 INFLUENZA VACCINE (#1) 2025 08/31/2018 DTAP/TDAP/TD VACCINES (2 - Td or Tdap) 12/18/2028 Medical Devices Implanted Type Area Tennis Ball Cover Cementer Device Identifier Shelf Expiration Date Model / Serial / Lot Manager Sales Training Clip Surgiclip Julio 13in [id number] - [id number] Implanted:Qty : 2 on 04/10/2023 by Vel De Leon MD at [facility] Breast [employer] - COVIDIEN [id number] / / Imp Breast Inspira Scm 405ml [facility]-405 - [id number] Implanted:Qty : 1 on 04/10/2023 by Vel De Leon MD at [facility] Right: Breast [employer]ICAL 11/13/2026 [facility]-405 / [id number] / [id number] Description:SVA ADDED - NO C HARGE - SURGEON BROUGHT IMPLANTS Imp Breast Inspira Scm 405ml Scm-405 - [id number] Implanted:Qty : 1 on 04/10/2023 by Vel De Leon MD at [facility] Left: Breast [employer] 11/20/2027 [facility]-405 / [id number] / [id number] Description:SVA ENTERED - NO CHARGE - SURGEON BROUGHT IMPLANTS Imp Breast Inspira Scm 405ml Scm-405 - [id number] Implanted:Qty : 1 on 11/07/2023 by Vel De Leon MD at [facility] Left: Breast [employer] 12/04/2027 [facility]-405 / [id number] / [id number] Description:CHARGE REMOVED I MPLANT BROUGHT IN BY DOCTOR'S OFFICE-RDJ Imp Breast Inspira Scm 405ml [facility]-405 - [id number] Implanted:Qty : 1 on 12/22/2023 by Vel De Leon MD at [facility] Right: Breast [employer] 11/20/2027 [facility]-405 / [id number] / [id number] Description:NO CHARGE - SURG ALEIDA BROUGHT IMPLANT Mesh Galaflex Bioresorb Scaffold 6x8in [id number] - [id number] Implanted:Qty : 1 on 11/07/2023 by Vel De Leon MD at [facility] Mesh N/A: Breast [employer] 12/20/2024 [id number] / / [id number] Description:NO CHARGE IMPLAN T SUPPLIED BY DR. DE LEON-RUST Explanted Type Area Tennis Ball Cover Cementer Device Identifier Shelf Expiration Date Model / Serial / Lot Imp Breast Inspira Scm 405ml [facility] - [id number] Implanted:Qty: 1 on 11/07/2023 by Vel De Leon MD at [facility] Explanted:Qty: 1 on 12/22/2023 by Vel De Leon MD at [facility] Right: Breast [employer] 01/07/2027 [facility]-405 / [id number] / [id number] Description:CHARGE REMOVED I MPLANT BROUGHT IN BY DOCTOR'S OFFICE-RDJ Insurance * Guarantor: Cristina Frankel Account Type Relation to Patient Date of Phone Billing Address Personal/Family Self 1990 [facility] [place] [address] [employer] Commercial Advance Directives For more information, please contact: [phone] * Full Code (Latest Code Status on File) Date Activated Date Inactivated Comments 12/22/2023 10:48 AM 12/22/2023 6:34 PM * Full Code Date Activated Date Inactivated Comments 04/10/2023 4:37 PM 04/11/2023 12:52 PM
--- OUTSIDE RECORDS SUMMARY | 2025-08-18 08:53 | XMS_ITS | Encounter Summary ---
Author Organization [facility] Address [address] [place] [address] Care Team Providers Care Recreation Technician Name Role Phone Unavailable Primary Care Provider Unavailabl e Reason for Visit * Reason Onset Date Comments Scheduling 10/16/2018 Encounter Details Date Type Department Care Team (Late st Contact Info) Description 10/16/2018 Telephone [facility] [address] [place] [id number] Isamar Silva, RN Scheduling Social History Tobacco Use Types Packs/Day Years Used Date Smoking Tobacco: Never Assessed Comments Yes Sex and Gender Information Value Date Recorded Sex Assigned at Not on file Legal Sex Female 1:38 PM CDT Gender Identity Not on file Sexual Orientation Not on file 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 When discussing plan for US and consult with Dr. Gan, patient shared that she does not want to have another US to look at the club feet again. She would liketo consult with Dr. Gan but questioned if a previous scan could be used instead of getting another one at [facility]. Stated I would talk with Dr. Sanchez and call her back. E PIPE IRRIGATOR documented in this encounter Plan of Treatment Not on file documented as of this encounter Visit Diagnoses Not on filedocumented in this encounter
--- OUTSIDE RECORDS SUMMARY | 2025-08-18 08:53 | XMS_ITS | Clinical Summary ---
Author Organization [facility] Address [address] [place] [address] Phone Care Team Providers Care Pitting Machine Operator Name Role Phone Mony Graff APRN, LICENSED FINAL EXPENSE AGENTS Primary Care Provi rubin Medications ESTARYLLA 0.25-35 MG-MCG Tablet TK 1 T PO D 11 07/24/2019 Active Social History Tobacco Use Types Packs/Day Years Used Date Smoking Tobacco: Never Smokeless Tobacco: Never Comments Unknown Sex and Gender Information Value Date Recorded Sex Assigned at Not on file Legal Sex Female 4:16 PM CERAMIC ARTIST Gender Identity Not on file Sexual Orientation [...] of 3 - 19+ 3-dose series) 2010 Pap Smear 2012 Human Papillomavirus (HPV) Immunization (1 - 3-dose SCDM series) 2018 Cervical Cancer Screening (CCS) 2021 HPV/Cotest 2021 Influenza Immunization (#1) 2025 08/31/2018 SARS-COV-2 Immunization ( season) 2025 Respiratory Syncytial Virus (RSV) Immunization (Adult) (1 - 1-dose 75+ series) 2066 Meningococcal Immunization (ACWY) Aged Out No longer eligible based on patient's age to complete this topic Pneumococcal Immunization Combined Aged Out No longer eligible based on patient's age to complete this topic Rotavirus Immunization Aged Out No lo nger eligible based on patient's age to complete this topic Insurance Care Teams Pitting Machine Operator Relationship Specialty Start Date End Date Mony Graff, HARMONIC ANALYST, LICENSED FINAL EXPENSE AGENTS PCP - General Certified Nurse Practitioner 06/25/19
[2025-08-20 07:09] LABS: Calprotectin, Fecal 32 ug/g (0-120)
[2025-08-20 14:08] LABS: Pancreatic Elastase, Fecal >800 (>200)
== END 2025-08-18 08:41 | disposition home or self-care (01) ==
LOC: ANHLAB 08:41
PROVIDERS: PCP Family Medicine; Visit Provider Nurse Practitioner Family
DX: R14.0 Abdominal distension (gaseous) (principal)
CPT/HCPCS: 82653; 83993; 87338

== ENCOUNTER 2025-08-19 09:42 | Outpatient (CLI) | payer BC, SELFPAY ==
--- NOTE | ~2025-08-19 | US_ITS ---
Clinical history:Unspecified urinary incontinence EXAM:Ultrasound pelvis limited TECHNIQUE:Portable static grayscale images and color Doppler transabdominal images were obtained of the pelvis. Comparisons:None available FINDINGS: Uterus measures 6.4 x 2.7 x 3.6 cm. Ovaries were not visualized. No visualized free fluid in the pelvis. No bladder wall thickening. No visualized bladder mass. Prevoid bladder volume equals 324.22 mL. Post void bladder volume equals 6.31 mL. IMPRESSION: 1.No bladder wall thickening. No visualized bladder mass. 2.Prevoid bladder volume equals 324.22 mL. 3.Post void bladder volume equals 6.31 mL. If symptoms persist or worsen, consider a short-term follow-up study or additional imaging for further assessment. Reviewed, dictated and finalized at location Q. IMPRESSION: 1.No bladder wall thickening. No visualized bladder mass. 2.Prevoid bladder volume equals 324.22 mL. 3.Post void bladder volume equals 6.31 mL. If symptoms persist or worsen, consider a short-term follow-up study or additio nal imaging for further assessment.
== END 2025-08-19 09:43 | disposition home or self-care (01) ==
PROVIDERS: PCP Family Medicine; Visit Provider Family Medicine
DX: R32 Unspecified urinary incontinence (principal)
CPT/HCPCS: 76857